=== PATIENT | female | born 1995 | race Two or more races ===

== ENCOUNTER 2020-11-02 21:57 | Inpatient (IN) | payer OTHER ==
[~2020-11-02] VITALS: Ht 167.6 cm; Wt 3.6 kg
[2020-11-02] MEDS ORDERED: IRON236 MG PO (22:00)
[2020-11-02] MEDS ORDERED: ADULT ASPIRIN81 MG PO (22:01)
[2020-11-02] MEDS ORDERED: PRENATAL TABLE1 EAC1 PO (22:01)
== END 2020-11-06 15:12 | disposition home or self-care (01) | DRG 788 ==
LOC: OBS/DEL 21:57 → OB/GYN 11-03 11:51 → OBS/DEL 11-03 11:51 → LDR 11-03 11:51 → O/R 11-03 20:59 → OB/GYN 11-03 21:30 → O/R 11-03 21:32 → OB/GYN 11-03 21:34
PROVIDERS: ADMIT Obstetrics & Gynecology; ATTEND Obstetrics & Gynecology
PROC: 3E033VJ Introduction of Other Hormone into Peripheral Vein, Percutaneous Approach (ICD-10-PCS; 2020-11-03)
PROC: 4A1HXFZ Monitoring of Products of Conception, Cardiac Rhythm, External Approach (ICD-10-PCS; 2020-11-03)
PROC: 10D00Z1 Extraction of Products of Conception, Low, Open Approach (ICD-10-PCS; principal; 2020-11-03 18:00)
DX: O62.1 Secondary uterine inertia (principal); O13.4 Gestational [pregnancy-induced] hypertension without significant proteinuria, complicating childbirth; Z37.0 Single live birth; Z3A.38 38 weeks gestation of pregnancy; Z20.822 Contact with and (suspected) exposure to COVID-19